=== PATIENT | female | born 1980 | race Caucasian/White ===

== ENCOUNTER 2023-04-04 16:31 | Outpatient (CLI) | payer OTHER, SELFPAY ==
[2023-04-04 17:09] LABS: Hematocrit 47.4 % (37.0-47.0)
== END 2023-04-04 16:32 | disposition home or self-care (01) ==
LOC: ANHLAB 16:35
PROVIDERS: PCP Nurse Practitioner; Visit Provider Obstetrics & Gynecology
DX: Z30.2 Encounter for sterilization (principal)
CPT/HCPCS: 36415; 85014; 85018

== ENCOUNTER 2023-04-06 00:07 | Day surgery (SDC) | payer OTHER, MEDICAID, SELFPAY ==
[2023-03-27 12:46] VITALS: BMI 37.3
--- NOTE | 2023-03-27 13:07 | SUR.PREOP ---
Report to the Outpatient Waiting Room, entrance under the green pavilion located off [facility], at time 0630 on date 04/06/23. Planned Procedure Time: 0830. Time changes happen often and if your time is changed the preop area will call you the afternoon before. - You and your visitor will be asked to self-screen and do not enter if you have any COVID symptoms. - A mask is optional within the hospital at this time. Patients may have clear liquids (water, carbonated beverages, clear teas, apple juice) until 3 hours prior to surgery with a maximum of 20 ounces. - No food from midnight until time of surgery Take the following medications with a SIP of water the morning of surgery: VENLAFAXINE DO NOT STOP ANY OF YOUR OTHER PRESCRIPTION MEDICATIONS PRIOR TO SURGERY ?EXCEPT THE FOLLOWING Medications to discontinue per physician STOP ALL VITAMINS AND SUPPLIMENTS 3 DAYS PRIOR Date to take last dose 04/03/23 Please no make-up, nail yoruba, hairspray, perfume, deodorant, or body powder the day of surgery. No jewelry (including any body piercings) or valuables the day of surgery, leave them at home. Please take a shower or bath the night before, or the morning of, surgery with an antibacterial soap. Wear comfortable, loose fitting clothing. Children are encouraged to wear pajamas. - Jewelry must be removed prior to entering the operating room. Rings and piercings that are not removed may be cut off. - The hospital will not accept responsibility for valuables. - Please leave all valuables, including medications, at home the day of surgery. If you are going home after surgery, a licensed clamp truck driver must drive you home. - NO public transportation without another adult if you receive anesthesia. - We recommend that an adult stay with you for 24 hours following discharge. - We also recommend that you do not drive, make important decision, drink alcoholic beverages, or take any drugs that were not prescribed by your health care provider for at least 24 hours after your discharge time. Follow any additional instructions given to you from your surgeon. If you or anyone in your household have experienced Covid symptoms in the past week, please notify your surgeon or the nurse liaison at the phone number below for possible testing. Telephone instructions given to CINDY NORIEGA and asked if any additional questions and then verbalized understanding. Patient advised to call surgeon office or pre surgery nurse liaison [phone] if any additional questions.
--- NOTE | 2023-04-04 10:11 | PM.IMHP ---
H&P: HPI History of Present Illness Date/Time: 04/04/23 10:11 Chief Complaint: Excessive bleeding/desires sterilization/displacement of IUD Narrative: This is a 43-year-old multiparous patient admitted for removal of her IUD which is sitting low in the cervix. She also desires permanent sterilization and repair of irregular excessive bleeding. She will undergo laparoscopic tubal ligation/hysteroscopy/dilatation curettage last Shayy ablation. Risks and benefits reviewed including but not exclusive of , aspiration pneumonia, bleeding, transfusion, perforation injury to bowel, bladder, ureters, or other internal organs with the need for open laparotomy. She received the [employer] handout entitled sterilization for men and women as well as hysteroscopy/dilatation and curettage. She also received the Shayy handout. She had all questions answered and asked to proceed PMFSH Social History Social History Smoking status: Never smoker Living arrangements: with family Spiritual care concerns: No Meds Home Medications and Allergies Home Medications Medication Instructions Recorded Confirmed Type dextroamphetamine-amphetamine ER 25 mg PO DAILY 03/27/23 03/27/23 History 25 mg 24hr capsule,extend release venlafaxine 150 mg tablet,extended 150 mg PO DAILY 03/27/23 03/27/23 History release 24 hr Allergies Allergy/AdvReac Type Severity Reaction Status Date / Time No Known Allergies Allergy Verified 03/27/23 10:38 Exam Const: General: cooperative, healthy appearing and comfortable Nutritional Appearance: average body habitus Orientation/consciousness: oriented to person, oriented to place and oriented to time HENMT: Head: normal to inspection Resp: Effort & Inspection: normal respiratory effort Cardio: Rate: regular rate Rhythm: regular rhythm Heart sounds: S1 normal heart sound present and S2 normal heart sound present GI: Inspection: normal to inspection : External Female Exam: normal external appearance Speculum Exam - Vagina: normal appearance of the vagina Speculum Exam - Cervix: normal appearance of the cervix Bimanual Exam- Adnexa, other: normal adnexae Assessment and Plan Assessment and plan (1) Excessive bleeding: Code(s): R58 - Hemorrhage, not elsewhere classified Status: Acute (2) Sterilization: Code(s): Z30.2 - Encounter for sterilization Status: Acute (3) IUD complication: Code(s): T83.9XXA - Unspecified complication of genitourinary prosthetic device, implant and graft, initial encounter Status: Acute Plan Laparoscopic bilateral tubal ligation with hysteroscopy/dilatation curettage/Shayy ablation and removal of IUD
[2023-04-06] VITALS (9 sets, daily range): BP systolic 101–133; BP diastolic 64–90; PULSE 71–99; RESP 16–20; TEMP 36.1–36.2; O2SAT 94–100
--- NOTE | 2023-04-06 06:31 | WPDHPUPDATE1 ---
History and Physical Update Update Date/Time: 04/06/23 06:31 History and Physical has been reviewed, including an updated exam of the patient. There are NO changes in the patient's condition. Risks, benefits, and alternatives have been discussed and questions answered. Patient agrees to proceed with procedure.
[2023-04-06] MEDS: ACETAMINOPHEN 500 MG TABLET 1000 MG PO (06:37)
[2023-04-06] MEDS: LACTATED RINGERS 1,000 ML 30 ML IV CONT (07:00)
[2023-04-06] MEDS: KETOROLAC 15 MG/ML VIAL (*BKC) IV PUSH (07:08)
--- NOTE | 2023-04-06 08:06 | P.PNAN_ITS ---
Anes - Initial Pre Proc Eval Procedure: Operation Date: 04/06/23 08:30 Proposed Procedures p Hysteroscopy, Dilation and Curettage with Shayy Endometrial Ablation, Removal of Intrauterine Device - Moise Madrigal MD s Laparoscopic Bilateral Tubal Sterilization With Fallopian Rings - Moise Madrigal MD Date/Time: 04/06/23 08:06 Surgeon: Moise Madrigal MD Pre Op Diagnosis: desires sterilization exc bleeding, rem lost iud Patient Data Age: 43 Gender: F Height: 1.54 m Weight: 90 kg Last Vital Signs Temp 36.2 C L 04/06/23 06:45 Pulse 99 04/06/23 06:45 Resp 16 04/06/23 06:45 BP 123/90 04/06/23 06:45 Pulse Ox 98 04/06/23 06:45 O2 Del Method Room Air 04/06/23 06:45 Allergies Allergy/AdvReac Type Severity Reaction Status Date / Time No Known Allergies Allergy Verified 04/06/23 06:36 Home Medications Medication Instructions Recorded Confirmed Type dextroamphetamine-amphetamine ER 25 mg PO DAILY 03/27/23 03/27/23 History 25 mg 24hr capsule,extend release venlafaxine 150 mg tablet,extended 150 mg PO DAILY 03/27/23 03/27/23 History release 24 hr hydrocodone 5 mg-acetaminophen 325 1 tablet PO Q4H PRN pain #30 tabs 04/06/23 Rx mg tablet Patient hx anesthesia problems: none Family hx anesthesia problems: none and post op nausea/vomiting Results Review: All pre-operative results and documents have been reviewed as part of the pre- operative evaluation. [facility] Social History Social History Smoking status: Never smoker Living arrangements: with family Spiritual care concerns: No Anes - Eval Final PreProcedure Day of Procedure 04/06/23 08:06 Patient weight: obese Heart: regular rate and rhythm Lungs: clear to auscultation Airway: Mallampati scale class II Neurological: alert and oriented Last oral intake: >/= 8 hours ASA classification: II Emergent: no Anesthetic plan: proceed Anesthesia type and monitoring: general ETT and standard monitoring Results Review: All pre-operative results and documents have been reviewed as part of the pre- operative evaluation. Informed Consent: The patient's anesthetic plan and its attendant risks and benefits were discussed with the patient/family/POA. Questions were solicited and answers provided to the satisfaction of the patient/family/POA.
[2023-04-06] MEDS: SCOPOLAMINE 1 MG PATCH 1 PATCH TRANSDERM (08:28)
--- NOTE | 2023-04-06 09:17 | W.PM.PROC2 ---
Procedure Note - Detailed Date of Procedure 04/06/23 Pre-op Diagnosis desires sterilization exc bleeding, rem lost iud Post-op Diagnosis Same Procedure Performed Removal of IUD/laparoscopic bilateral tubal ligation with rings/hysteroscopy/ dilatation curettage/ Shayy ablation Surgeon Moise Madrigal MD Anesthesia General Indications this 43-year-old female with an irregularly placed IUD with bleeding and desires permanent sterilization Findings normal-appearing uterus ovaries and tubes. Endometrial lining was irregular with clots and thickened endometrium. Description of Procedure Patient was prepped draped in normal sterile fashion placed in the dorsal lithotomy position. Under excellent general trach anesthesia weighted speculum placed in posterior fornix vagina. Anterior lip of the cervix grasped with a single-tooth tenaculum. The IUD was removed in toto and the uterus sounded to 9cm. Serial dilatation with fragmented dilators performed followed by passage of the Malone's cannula and attached to the single-tooth tenaculum. The bladder was emptied of clear urine the weighted speculum was removed. After gloves had been changed, a supraumbilical incision made. Veress needle passed in the abdomen the abdomen filled with CO2 gas [id number]. The 5mm trocar advanced under direct visualization assuring no injury. Patient placed in Trendelenburg and a suprapubic incision made. The 8mm trocar advanced in the abdomen. Downside visualized no injury seen. The low right fallopian tube was grasped and a good knuckle of tube formed with excellent blanching. In similar fashion the left fallopian tube was grasped was midportion a good knuckle of tube formed with ring. Photo documentation was undertaken and no other abnormality seen. The instruments withdrawn the gas removed from the abdomen. The trocars removed the incisions closed with 4 Monocryl and glue. Attention was turned to the hysteroscopy D portion. Uterus sounded to 10cm. Serial dilatation with fragmented dilators performed followed passes of of the day hysteroscope using normal saline visualizing medium. Irregular thick endometrium was seen but no evidence of polyps or other abnormalities. The uterus was then scraped over the entire 360? until good grating sound was heard. The instruments were withdrawn Shayy instrument placed in the uterus at the appropriate settings. The endometrial lining was burned for 120seconds. The instrument was removed and the hysteroscope reinserted with an excellent burn seen. Photo documentation undertaken. The instruments withdrawn the patient was awakened. She went to recovery in satisfactory condition. All sponge, needle, instrument counts were correct. There were no immediate complications Estimated Blood Loss 5 Drains No Packing No Pathology Yes Complications No immediate complications Condition Stable Disposition PACU
[2023-04-06] MEDS: fentaNYL CITRATE INJ (*CRX) 100 MCG/2 ML VIAL 25 MCG IV PUSH ×7 (09:27→10:56)
[2023-04-06] MEDS: oxyCODONE HCL (*CRX) 5 MG TAB IR PO (10:45)
== END 2023-04-06 11:32 | disposition home or self-care (01) ==
PROVIDERS: PCP Nurse Practitioner; Visit Provider Obstetrics & Gynecology
PROC: 0U5B8ZZ Destruction of Endometrium, Via Natural or Artificial Opening Endoscopic (ICD-10-PCS; CPT 58563; principal; 2023-04-06 08:30)
PROC: (CPT 58671; 2023-04-06 08:30)
DX: N92.0 Excessive and frequent menstruation with regular cycle (principal); T83.9XXA Unspecified complication of genitourinary prosthetic device, implant and graft, initial encounter; Z30.2 Encounter for sterilization
CPT/HCPCS: 58563; 58671; 36415; 85014; 85018; 88305; A4264; A9270; J1100; J1596; J1885; J2250; J2405; J2704; J2710; J3010; J7120